=== PATIENT | male | born 1965 | race Caucasian/White ===

== ENCOUNTER 2024-07-08 00:35 | Inpatient (IN) | payer OTHER ==
[2024-07-08 01:31] VITALS: BMI 30.4
[2024-07-08] MEDS ORDERED: ONDANSETRON *ODT* 4 MG TABLET SL PRN (02:00)
[2024-07-08] MEDS ORDERED: MAGNESIUM HYDROX 2400MG/30ML ORAL SUSPENSION 30 ML CUP PO PRN (02:00)
[2024-07-08] MEDS ORDERED: LOPERAMIDE HCL 2 MG CAPSULE PO PRN (02:00)
[2024-07-08] MEDS ORDERED: NALOXONE (NARCAN) HCL 4 MG/0.1 ML SPRAY NS PRN (02:00)
[2024-07-08] MEDS ORDERED: BENZOCAINE/MENTHOL (CHLORASEPTIC ) LOZENGE MM PRN (02:00)
[2024-07-08] MEDS ORDERED: IBUPROFEN 400 MG TABLET (FP) PO PRN (02:00)
[2024-07-08] MEDS ORDERED: DICYCLOMINE HCL 10 MG CAPSULE PO PRN (02:00)
[2024-07-08] MEDS ORDERED: BENZONATATE 200 MG CAPSULE PO PRN (02:00)
[2024-07-08] MEDS ORDERED: MAG HYDROX/AL HYDROX/SIMETH 30 ML UNIT-DOSE CUP PO PRN (02:00)
[2024-07-08] MEDS ORDERED: BISMUTH SUBSALICYLATE 524 MG/30 ML PO PRN (02:00)
[2024-07-08] MEDS ORDERED: POLYETHYLENE GLYCOL (HEALTHYLAX) 3350 17 GM PACKET PO PRN (02:00)
[2024-07-08] MEDS ORDERED: IBUPROFEN 600 MG TABLET (FP) PO PRN (02:00)
[2024-07-08] MEDS ORDERED: ACETAMINOPHEN 325 MG TABLET (FP) PO PRN (02:00)
[2024-07-08] MEDS ORDERED: guaiFENesin 600 MG TABLET.ER (FP) PO PRN (02:00)
[2024-07-08] MEDS ORDERED: chlordiazePOXIDE HCL 25 MG CAPSULE ONE (02:53)
[2024-07-08] MEDS: chlordiazePOXIDE HCL 25 MG CAPSULE PO ONE (02:55)
[2024-07-08] MEDS: chlordiazePOXIDE HCL 25 MG CAPSULE PO SCH (05:50)
[2024-07-08] MEDS: PRENATAL VITAMINS W/ FOLIC ACID TABLET (FP) PO SCH (10:35)
[2024-07-08] MEDS: FAMOTIDINE 20 MG TABLET PO SCH (11:19)
[2024-07-08] MEDS: METHOCARBAMOL 500 MG TABLET PO PRN (11:21)
[2024-07-08] MEDS: hydrOXYzine PAMOATE 25 MG CAPSULE (FP) PO PRN (11:21)
[2024-07-08] MEDS: chlordiazePOXIDE HCL 25 MG CAPSULE PO PRN (13:56)
[2024-07-08 14:39] LABS: POTASSIUM 3.6 mmol/L (3.5-5.1)
[2024-07-08 14:48] LABS: CALCIUM 8.4 mg/dL (8.5-10.1)
[2024-07-08 14:49] LABS: ALBUMIN 3.3 g/dl (3.4-5.0); BLOOD UREA NITROGEN 7.2 mg/dL (7-18)
[2024-07-08 14:52] LABS: CREATININE 0.7 mg/dL (0.55-1.3)
[2024-07-08 14:53] LABS: BILIRUBIN,TOTAL 1.8 mg/dL (0.2-1); HEMATOCRIT 35.8 % (35.4-49); MCH 32.6 pg (25.7-33.7); MCHC 33.6 g/dl (32.0-35.9); MEAN CELL VOLUME 96.8 fl (80-96); MEAN PLT VOLUME 10.4 fl (7.5-11.1); PLATELET COUNT 72 10^3/uL (134-434); RDW 14.5 % (11.9-15.9); WHITE BLOOD COUNT 2.1 K/mm3 (4.0-10.0)
[2024-07-08 14:55] LABS: TOT PROT 7.2 g/dl (6.4-8.2)
[2024-07-08] MEDS ORDERED: LORazepam 1 MG TABLET PO PRN (15:24)
[2024-07-08] MEDS: LORazepam 2 MG TABLET PO SCH (17:56)
[2024-07-08] MEDS: THIAMINE 100 MG TABLET PO SCH (22:27)
[2024-07-08] MEDS: MELATONIN 5 MG TABLETS PO SCH (22:29)
[2024-07-08] MEDS: GABAPENTIN 100 MG CAPSULE PO SCH (22:29)
[2024-07-08] MEDS: APIXABAN 2.5 MG TABLET PO SCH (22:29)
[2024-07-08] MEDS: ATORVASTATIN CA 10 MG TABLET (FP) PO SCH (22:29)
[2024-07-09] MEDS ORDERED: chlordiazePOXIDE HCL 25 MG CAPSULE PO SCH (05:00)
[2024-07-10] MEDS ORDERED: chlordiazePOXIDE HCL 10 MG CAPSULE PO PRN
[2024-07-10] MEDS ORDERED: chlordiazePOXIDE HCL 10 MG CAPSULE PO SCH (05:00)
[2024-07-10] MEDS: LORazepam 1 MG TABLET PO SCH (05:31)
[2024-07-11] MEDS ORDERED: LORazepam 0.5 MG TABLET PO PRN
[2024-07-11] MEDS ORDERED: chlordiazePOXIDE HCL 10 MG CAPSULE PO SCH (05:00)
[2024-07-11] MEDS: LORazepam 0.5 MG TABLET PO SCH (05:59)
[2024-07-11 17:34] LABS: BASO % 0.8 % (0-2.0); EOS % 6.2 % (0-4.5); LYMPH % 29.4 % (8-40); MCH 32.7 pg (25.7-33.7); MCHC 33.2 g/dl (32.0-35.9); MEAN CELL VOLUME 98.6 fl (80-96); MEAN PLT VOLUME 9.5 fl (7.5-11.1); MONO % 13.7 % (3.8-10.2); NEUT % 49.9 % (42.8-82.8); RBC 3.35 M/mm3 (4.00-5.60); RDW 14.7 % (11.9-15.9); WHITE BLOOD COUNT 2.6 K/mm3 (4.0-10.0)
[2024-07-11 18:16] LABS: PLATELET ESTIMATE MOD DECREASED
[2024-07-11 18:17] LABS: PLATELET COUNT 55 10^3/uL (134-434)
[2024-07-11] MEDS ORDERED: propRANOLol HCL 10 MG TABLET PO ONE (18:51)
[2024-07-11] MEDS: propRANOLol HCL 10 MG TABLET PO ONE (20:29)
[2024-07-12] MEDS ORDERED: chlordiazePOXIDE HCL 10 MG CAPSULE PO ONE (05:00)
[2024-07-12] MEDS: LORazepam 0.5 MG TABLET PO ONE (05:34)
[2024-07-12 10:02] VITALS: PULSE 98; RESP 16; TEMP 98.9
[2024-07-12 10:07] VITALS: BP 112/75
[2024-07-12] MEDS: NALOXONE (NYS OPIOID OVERDOSE PROGRAM) 4 MG/0.1 ML SPRAY NS PRN (10:40)
== END 2024-07-12 10:44 | disposition home or self-care (01) | DRG 775 ==
LOC: YASAS 00:35 → Y6N 02:28
PROVIDERS: ADMIT Allergy & Immunology; ATTEND Surgery
PROC: HZ2ZZZZ Detoxification Services for Substance Abuse Treatment (ICD-10-PCS; principal; 2024-07-08)
DX: F10.230 Alcohol dependence with withdrawal, uncomplicated (principal); F10.282 Alcohol dependence with alcohol-induced sleep disorder; F10.280 Alcohol dependence with alcohol-induced anxiety disorder; F10.24 Alcohol dependence with alcohol-induced mood disorder; F41.9 Anxiety disorder, unspecified; D69.6 Thrombocytopenia, unspecified; E78.5 Hyperlipidemia, unspecified; I10 Essential (primary) hypertension; K21.9 Gastro-esophageal reflux disease without esophagitis; R74.01 Elevation of levels of liver transaminase levels; Z95.2 Presence of prosthetic heart valve; Z79.01 Long term (current) use of anticoagulants
CPT/HCPCS: 36415; 73130-TC-RT-FY; 80053; 80305; 80307; 84450; 85025; 85027; 86780; 93005; 93010